=== PATIENT | male | born 1955 | race Caucasian/White ===

== ENCOUNTER 2019-11-23 07:37 | Emergency (ER) | payer OTHER ==
--- OUTSIDE RECORDS SUMMARY | 2019-11-23 07:44 | XMS REPORT | Continuity of Care Document ---
:1955 External Reference #:[id number] Author Name Luis Eduardo Diggs M.D. Address [address] [place] [address] Care Team Providers Name Role Phone Kiran Osborn M.D. - Internal Care Team Information Windows Systems Architect Medicine Andrés Martins M.D. - Care Team Information Windows Systems Architect [phone] Cardiovascular Disease Lois Lambert M.D. - Pulmonary Care Team Information Windows Systems Architect Disease Vadim Weaver M.D. - Urology Care Team Information Windows Systems Architect [phone] Problems Active Problems Provider Date Essential hypertension Onset: Psoriasis Onset: Note: LEG Migraine Onset: Pure hypercholesterolemia Onset: Nuclear senile cataract Maci Rowan O.D. Onset: 03/29/2015 Myopia Maci Rowan O.D. Onset: 03/29/2015 High Risk Open Angle Glaucoma Maci Rowan O.D. Onset: 03/29/2015 Open angle with borderline findings, high Maci Rowan O.D. Onset: 2015 risk, bilateral Combined form of senile cataract Luis Eduardo Diggs M.D. Onset: 01/13/2016 Benign prostatic hyperplasia Onset: Retinal detachment Luis Eduardo Diggs M.D. Onset: 04/06/2017 Vitreous degeneration Luis Eduardo Diggs M.D. Onset: 04/06/2017 FH: Glaucoma Luis Eduardo Diggs M.D. Onset: 04/06/2017 Ocular hypertension Luis Eduardo Diggs M.D. Onset: 10/01/2017 Chronic cough Onset: Social History Type Date Description Comments Sex Unknown ETOH Use Occasionally consumes alcohol Tobacco Use Start: Unknown Patient has never smoked Recreational Drug Use Never Used Drugs Smoking Status Reviewed: 10/02/19 Patient has never smoked Allergies, Adverse Reactions, Alerts Description No Known Drug Allergies Medications Active Medications SIG Qnty Indications Ordering Provider Date Amlodipine Besylate Shallish, Kiran 5mg M.D. Tablets Toprol XL Shallish, Kiran 50mg Tablets ER M.D. 24HR Benicar Shallish, Kiran 40mg Tablets M.D. Pravastatin Sodium Shallish, Kiran 5mg M.D. Tablets Duloxetine HCL Unknown 60mg Caps DR Part Tamsulosin HCL Unknown 0.4mg Capsules Fluticasone Propionate instill 1 spray Unknown into each nostril 50mcg/Act Suspension twice a day Immunizations Description No Information Available Vital Signs Description No Information Available Results Description No Information Available Procedures Date Code Description Status 04/03/2019 46267 Fundus Photography With Interpretation And Report Completed 04/03/2019 75683 Visual Field Exam Extended Completed 04/03/2019 75779 Determination Of Refractive State Completed 04/03/2019 05254 Est Patient Comprehensive Exam Completed Medical Devices Description No Information Available Encounters Description No Information Available Assessments Date Code Description Provider 10/02/2019 H40.053 Ocular hypertension, bilateral Luis Eduardo Diggs M.D. 10/02/2019 Z83.511 Family history of glaucoma Luis Eduardo Diggs M.D. 10/02/2019 H25.813 Combined forms of age-related cataract, Luis Eduardo Diggs M.D. bilateral 10/02/2019 H43.813 Vitreous degeneration, bilateral Luis Eduardo Diggs M.D. 04/03/2019 H40.053 Ocular hypertension, bilateral Luis Eduardo Diggs M.D. 04/03/2019 Z83.511 Family history of glaucoma Luis Eduardo Diggs M.D. 04/03/2019 H25.813 Combined forms of age-related cataract, Luis Eduardo Diggs M.D. bilateral 04/03/2019 H43.813 Vitreous degeneration, bilateral Luis Eduardo Diggs M.D. Plan of Treatment 10/02/2019 - Luis Eduardo Diggs M.D.H40.053 Ocular hypertension, bilateralComments :Smoking can increase the risk of developing or worsening any eye related disease, as well as affect your overall health. If you are a smoker, we strongly recommend that you quit.If you are not a smoker, we strongly recommend that you do not start. You have Ocular Hypertension in both eyes. This means that your eye pressure is higher than average, but you have not been diagnosed with Glaucoma.Follow up:6 Month Follow Up DFE/IOP Visual Field, 30-2 You can expect to have your eyes dilated at your nextvisit. If Dr. Diggs orders any additional testing, it may require extra time. We recommend that you bring sunglasses, as dilation drops often make you light sensitive until they wear off. We always recommend you bring someone to drive you home if you are uncomfortable driving with your eyes dilated. If you have any questions before your next visit, feel free to call our office at .F54.008 Family history of glaucomaComments:Having a family history of glaucoma is a risk factor for the possibility of you developing glaucoma.However, having a family history does not mean you show any signs of glaucoma now, or will develop glaucoma in the future. It is important that you have a dilated eye exam annually, because even thoughglaucoma is a treatable disease, it does not present itself with any signs or symptoms.H25.813 Combined forms of age-related cataract, bilateralComments:You have been diagnosed with cataracts. If you are happy with your vision as it is now, then we willsee you at your next scheduled appointment. If you feel like your vision is getting worse before your scheduled appointment, please call Marjan or Kelly at [phone].H43.813 Vitreous degeneration, bilateral Functional Status Description No Information Available Mental Status Description No Information Available Referrals Description No Information Available
--- NOTE | 2019-11-23 08:36 | ED ---
Lower Extremity - HPI Summary HPI Summary: This patient is a 64-year-old male presenting to the ED with a right ankle injury. Patient states he was cross country skiing yesterday, when he tripped and fell, falling over his right ankle. He states he was able to ambulate following, however with discomfort. He endorses pain with dorsiflexion and plantarflexion. He denies any pain to the right lower extremity. He does have slight discoloration to the area. Denies any other pain or injuries. 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 Mechanism Of Injury: Twisted Onset of Pain: Hours Onset/Duration: Hours Severity Initially: Moderate Severity Currently: Moderate Pain Intensity: 10 Pain Scale Used: 0-10 Numeric Timing: Constant Location: Is Discrete @ - right ankle fracture Associated Signs And Symptoms: Negative: Swelling, Redness, Bruising Aggravating Factor(s): Standing, Ambulation Alleviating Factor(s): Rest Able to Bear Weight: Yes - Risk Factors Gout Risk Factors: Male DVT Risk Factors: Negative Septic Arthritis Risk Factor: Negative - Allergies/Home Medications Allergies/Adverse Reactions: Allergies Allergy/AdvReac Type Severity Reaction Status Date / Time No Known Allergies Allergy Verified 11/23/19 07:40 PMH/Surg Hx/FS Hx/Imm Hx Previously Healthy: Yes Cardiovascular History: Reports: Hx Hypertension Denies: Hx Pacemaker/ICD GI History: Reports: Hx Ulcer - IN THE PAST Sensory History: Reports: Hx Contacts or Glasses - GLASSES Denies: Hx Hearing Aid Opthamlomology History: Reports: Hx Contacts or Glasses - GLASSES Neurological History: Reports: Hx Migraine - ON OCCASION- STATES TENDS TO BE WHEN DEHYDRATED Psychiatric History: Reports: Hx Depression - ON MEDICATION FOR Denies: Hx Panic Disorder - Surgical History Surgery Procedure, Year, and Place: appy, hernia, tonsils Hx Anesthesia Reactions: No - Immunization History Hx Pertussis Vaccination: No Immunizations Up to Date: Yes Infectious Disease History: No Infectious Disease History: Denies: Traveled Outside the [place] in Last 30 Days - Social History Occupation: Employed Full-time Lives: With Family Alcohol Use: None Hx Substance Use: No Substance Use Type: Reports: None Smoking Status (MU): Never Smoked Tobacco Review of Systems Negative: Fever, Chills, Fatigue, Skin Diaphoresis Negative: Palpitations, Chest Pain Negative: Shortness Of Breath, Cough Genitourinary: Negative Positive: no symptoms reported, see HPI Positive: Arthralgia - right bilateral ankle pain Skin: Negative All Other Systems Reviewed And Are Negative: Yes Physical Exam Triage Information Reviewed: Yes Vital Signs On Initial Exam: Initial Vitals Temp Pulse Resp BP Pulse Ox 99.8 F 73 19 157/96 98 11/23/19 07:37 11/23/19 07:37 11/23/19 07:37 11/23/19 07:37 11/23/19 07:37 Vital Signs Reviewed: Yes Appearance: Positive: Well-Appearing, Well-Nourished Skin: Positive: Warm, Skin Color Reflects Adequate Perfusion Head/Face: Positive: Normal Head/Face Inspection Eyes: Positive: EOMI, BHAVYA Neck: Positive: Supple, No Lymphadenopathy Respiratory/Lung Sounds: Positive: Clear to Auscultation, Breath Sounds Present Cardiovascular: Positive: RRR, Pulses are Symmetrical in both Upper and Lower Extremities Musculoskeletal: Positive: Pain @ - right ankle pain Neurological: Positive: Speech Normal Psychiatric: Positive: Normal, Affect/Mood Appropriate Procedures - Sedation Patient Received Moderate/Deep Sedation with Procedure: No Diagnostics - Vital Signs Vital Signs Temp Pulse Resp BP Pulse Ox 11/23/19 07:37 99.8 F 73 19 157/96 98 - Laboratory Lab Statement: Any lab studies that have been ordered have been reviewed, and results considered in the medical decision making process. Lower Extremity Course/Dx - Course Course Of Treatment: Patient has pain with dorsiflexion and plantar flexion of the right ankle. No pain on palpation to the right lower extremity. No pain on palpation to the right knee. Full flexion and extension without limitations range of motion. Oblique fracture of the distal fibula with probable nondisplaced fracture of the medial malleolus. Pulses intact bilaterally. Posterior splint with sugar tong placed using plaster. Pt tolerated well. NV intact. Pt will follow up with ortho. - Diagnoses Differential Diagnosis/HQI/PQRI: Positive: Fracture (Closed), Fracture (Open), Sprain, Strain Provider Diagnoses: Fracture of distal end of fibula Discharge ED - Sign-Out/Discharge Documenting (check all that apply): Patient Departure - Discharge Plan Condition: Stable Disposition: HOME Patient Education Materials: Ankle Fracture (ED) Referrals: Larisa Cottrell MD [Medical Doctor] - Lior Ortega MD [Medical Doctor] - Kiran Osborn MD [Primary Care Provider] - Additional Instructions: Elevate the extremity when possible Do not bear weight Tomorrow morning, call the ortho office for an appt Crutches for ambulation - Billing Disposition and Condition Condition: STABLE Disposition: Home
[2019-11-23 08:41] VITALS: BP 148/84
== END 2019-11-23 08:40 | disposition home or self-care (01) ==
LOC: ED 07:37
DX: S82.831A Other fracture of upper and lower end of right fibula, initial encounter for closed fracture (principal); W01.0XXA Fall on same level from slipping, tripping and stumbling without subsequent striking against object, initial encounter; Y93.24 Activity, cross country skiing; Y92.9 Unspecified place or not applicable; I10 Essential (primary) hypertension; F32.9 Major depressive disorder, single episode, unspecified
CPT/HCPCS: 99282

== ENCOUNTER 2019-12-04 11:30 | Day surgery (SDC) | payer OTHER ==
[~2019-12-04 11:30] MED LIST: Buffered Lidocaine 1% SYRIN* 1 ML/SYRINGE INTRADERM ONE; Dexamethasone IV* 4 MG/ML 1 ML (4 MG) IV SLOW PU ONE; Famotidine IV* 10 MG/ML 2 ML (20 mg) IV ONE; Lactated Ringers 1000 ML Bag* 1,000 ML IV SCH
[2019-12-04] MEDS ORDERED: ceFAZolin 2 GM in NS PREMIX(*) 2 GM/100 ML BAG IVPB ONE (12:22)
[2019-12-04] MEDS ORDERED: Dexamethasone IV* 4 MG/ML 1 ML (4 MG) ONE (12:22)
[2019-12-04] MEDS ORDERED: Famotidine IV* 10 MG/ML 2 ML (20 mg) ONE (12:22)
[2019-12-04] MEDS ORDERED: fentaNYL* 50 MCG/ML 2 ML VIAL (100 MCG VIAL) ONE ×2 (13:24→15:18)
[2019-12-04] MEDS ORDERED: Midazolam* 1 MG/ML 5 ML VIAL (5 MG) ONE (13:25)
[2019-12-04] MEDS ORDERED: Ondansetron INJ* 2 MG/ML VIAL ONE (13:25)
[2019-12-04] MEDS ORDERED: Propofol* 10 MG/ML 20 ML BTL ONE ×3 (13:25→16:30)
[2019-12-04] MEDS ORDERED: Lidocaine 1% w EPI 1:100,000* MDV 20 ML VIAL ONE ×2 (13:55→14:05)
[2019-12-04] MEDS ORDERED: Methylene Blue 0.5 %* 50 MG/10 ML AMP IV ONE (13:55)
[2019-12-04] MEDS ORDERED: Bupivacaine 0.25% SDV* 30 ML ONE (13:56)
[2019-12-04] MEDS ORDERED: Mineral Oil Sterile, TOPICAL* 25 ML BTL ONE (13:56)
[2019-12-04] MEDS ORDERED: Labetalol IV* 5 MG/ML 20 ML VIAL ONE (16:07)
[2019-12-04] MEDS ORDERED: Acetaminophen TAB* 325 MG ONE (17:33)
[2019-12-04 17:56] VITALS: BP 127/84
== END 2019-12-04 18:08 | disposition home or self-care (01) ==
LOC: OR 11:30
PROVIDERS: ATTEND Plastic Surgery
DX: C44.42 Squamous cell carcinoma of skin of scalp and neck (principal); I10 Essential (primary) hypertension; J45.909 Unspecified asthma, uncomplicated; E78.00 Pure hypercholesterolemia, unspecified; Z85.828 Personal history of other malignant neoplasm of skin
CPT/HCPCS: 88305; 88329; A9270-GY; J0690; J1100; J2250; J2405; J2704; J3010; J3490

== ENCOUNTER 2022-09-12 10:29 | Inpatient (IN) ==
[2022-09-12] MEDS ORDERED: NS 0.9% 1000 ml BAG 1,000 ML IV ONE ×2 (13:34→14:41)
[2022-09-12 13:43] LABS: ABS Eosinophils 0.1 10^3/ul (0-0.6); ABS Monocytes 0.8 10^3/ul (0-0.8); ABS Neutrophils 11.4 10^3/ul (1.5-7.7); Eosinophil % 0.4 %; Hematocrit 50 % (42-52); Hemoglobin 17.1 g/dL (14.0-18.0); Lymphocyte % 7.6 %; Mean Corpuscular HGB Conc 34 g/dL (31-36); Mean Corpuscular Hemoglobin 32 pg (27-31); Mean Corpuscular Volume 94 fL (80-94); Mean Platelet Volume 6.8 fL (7.4-10.4); Platelet Count 245 10^3/uL (150-450); Red Blood Count 5.27 10^6 /uL (4.18-5.48); Red Cell Distribution Width 12 % (10-15); White Blood Count 13.3 10^3/uL (3.5-10.8)
[2022-09-12] MEDS ORDERED: Ondansetron 4 mg VIAL 2 MG/ML 2 ml VIAL IV ONE (14:14)
[2022-09-12 14:28] LABS: Albumin 4.4 g/dL (3.2-5.2); Albumin/Globulin Ratio 1.8 (1-3); C Reactive Protein 20.54 mg/L (<8.01); Calcium 9.7 mg/dL (8.6-10.3); Globulin 2.5 g/dL (2-4); Magnesium 1.9 mg/dL (1.9-2.7); Potassium 4.2 mmol/L (3.5-5.0); Total Bilirubin 1.3 mg/dL (0.2-1.0); Total Protein 6.9 g/dL (6.4-8.9); eGFR CKD-EPI 97.7 (>60)
[2022-09-12] MEDS ORDERED: Iohexol 350 (CONTRAST) 500 ML MDV IV ONE (14:54)
[2022-09-12 15:49] LABS: High Sensitivity Troponin 1 Hr 20 pg/mL (<20)
[2022-09-12 16:10] LABS: Urine Appearance Clear; Urine Bilirubin Negative (Negative); Urine Blood 2+ (Negative); Urine Color Yellow; Urine Glucose Negative (Negative); Urine Ketones Trace (Negative); Urine Nitrite Negative (Negative); Urine Protein Negative (Negative); Urine Specific Gravity 1.024 (1.002-1.030); Urine Urobilinogen Negative (Negative)
[2022-09-12 16:14] LABS: Urine Bacteria Absent (Absent); Urine Red Blood Cell 2+(6-10/hpf) (Absent); Urine White Blood Cell Trace(0-5/hpf) (Absent)
[2022-09-12 17:50] LABS: Osmolality Serum 258 mOsm/kg (275-295)
[2022-09-12 17:51] LABS: TSH Ultra Thyroid Stim Horm 1.22 mcIU/mL (0.34-5.60)
[2022-09-12] MEDS: Enoxaparin 40 MG/0.4 ML SYR SUBCUT SCH (18:33)
[2022-09-12 19:35] LABS: Calcium 8.9 mg/dL (8.6-10.3); Potassium 3.9 mmol/L (3.5-5.0); eGFR CKD-EPI 99.7 (>60)
[2022-09-12] MEDS ORDERED: Al Hydrox/Mg Hydrox/Simet LIQ 30 ML UDC PO ONE (19:40)
[2022-09-12 19:48] LABS: Urine Osmo 431 mOsm/kg (150-1150)
[2022-09-12] MEDS: Albuterol HFA INHALER 8 gm MDI INH PRN (20:25)
[2022-09-12] MEDS: Mometasone/Formoter 200/5 MDI INH SCH (20:35)
[2022-09-13] MEDS: Al Hydrox/Mg Hydrox/Simet LIQ 30 ML UDC PO PRN (00:30)
[2022-09-13 00:58] LABS: Calcium 9.1 mg/dL (8.6-10.3); Potassium 3.9 mmol/L (3.5-5.0); eGFR CKD-EPI 99.3 (>60)
[2022-09-13 06:37] LABS: Hematocrit 47 % (42-52); Hemoglobin 16.5 g/dL (14.0-18.0); Mean Corpuscular HGB Conc 35 g/dL (31-36); Mean Corpuscular Hemoglobin 32 pg (27-31); Mean Corpuscular Volume 93 fL (80-94); Mean Platelet Volume 6.8 fL (7.4-10.4); Platelet Count 225 10^3/uL (150-450); Red Blood Count 5.09 10^6 /uL (4.18-5.48); Red Cell Distribution Width 13 % (10-15); White Blood Count 10.9 10^3/uL (3.5-10.8)
[2022-09-13 07:31] LABS: Potassium 3.7 mmol/L (3.5-5.0); eGFR CKD-EPI 99.3 (>60)
[2022-09-13] MEDS: Mometasone/Formoter 200/5 MDI INH SCH ×2 (07:43→19:15)
[2022-09-13] MEDS: Albuterol HFA INHALER 8 gm MDI INH PRN ×3 (07:52→19:17)
[2022-09-13] MEDS: Pravastatin 20 mg TAB (NF) PO SCH (08:39)
[2022-09-13] MEDS ORDERED: DULoxetine DR 60 mg CAP PO SCH (09:00)
[2022-09-13] MEDS: Enoxaparin 40 MG/0.4 ML SYR SUBCUT SCH (20:37)
[2022-09-14 07:06] LABS: ABS Eosinophils 0.1 10^3/ul (0-0.6); ABS Lymphocytes 1.4 10^3/ul (1.0-4.8); ABS Monocytes 1.3 10^3/ul (0-0.8); ABS Neutrophils 8.1 10^3/ul (1.5-7.7); Eosinophil % 0.5 %; Hematocrit 47 % (42-52); Hemoglobin 16.4 g/dL (14.0-18.0); Lymphocyte % 13.1 %; Mean Corpuscular HGB Conc 35 g/dL (31-36); Mean Corpuscular Hemoglobin 33 pg (27-31); Mean Corpuscular Volume 93 fL (80-94); Mean Platelet Volume 7.2 fL (7.4-10.4); Nucleated Red Blood Cells % 0.1; Platelet Count 244 10^3/uL (150-450); Red Blood Count 5.04 10^6 /uL (4.18-5.48); Red Cell Distribution Width 12 % (10-15); White Blood Count 10.8 10^3/uL (3.5-10.8)
[2022-09-14] MEDS: Mometasone/Formoter 200/5 MDI INH SCH ×2 (07:14→19:22)
[2022-09-14 07:29] LABS: Calcium 8.8 mg/dL (8.6-10.3); Magnesium 2.2 mg/dL (1.9-2.7); Potassium 3.6 mmol/L (3.5-5.0); eGFR CKD-EPI 98.1 (>60)
[2022-09-14] MEDS: Pravastatin 20 mg TAB (NF) PO SCH (08:23)
[2022-09-14] MEDS: Albuterol HFA INHALER 8 gm MDI INH PRN (12:09)
[2022-09-14] MEDS ORDERED: Senna TAB 8.6 mg TAB PO ONE (12:26)
[2022-09-14] MEDS: Magnesium Hydroxide LIQ 30 ML UDC PO SCH ×2 (13:51→19:46)
[2022-09-14] MEDS: Al Hydrox/Mg Hydrox/Simet LIQ 30 ML UDC PO PRN (16:39)
[2022-09-14] MEDS: Enoxaparin 40 MG/0.4 ML SYR SUBCUT SCH (20:30)
[2022-09-15 06:17] LABS: ABS Eosinophils 0.1 10^3/ul (0-0.6); ABS Lymphocytes 1.9 10^3/ul (1.0-4.8); ABS Monocytes 1.2 10^3/ul (0-0.8); ABS Neutrophils 6.5 10^3/ul (1.5-7.7); Eosinophil % 0.9 %; Hematocrit 44 % (42-52); Hemoglobin 15.5 g/dL (14.0-18.0); Lymphocyte % 19.8 %; Mean Corpuscular HGB Conc 35 g/dL (31-36); Mean Corpuscular Hemoglobin 33 pg (27-31); Mean Corpuscular Volume 94 fL (80-94); Mean Platelet Volume 6.9 fL (7.4-10.4); Platelet Count 235 10^3/uL (150-450); Red Blood Count 4.74 10^6 /uL (4.18-5.48); Red Cell Distribution Width 13 % (10-15); White Blood Count 9.8 10^3/uL (3.5-10.8)
[2022-09-15 06:29] LABS: Calcium 8.6 mg/dL (8.6-10.3); Magnesium 2.6 mg/dL (1.9-2.7); Potassium 3.5 mmol/L (3.5-5.0)
[2022-09-15] MEDS: Mometasone/Formoter 200/5 MDI INH SCH (07:15)
[2022-09-15] MEDS ORDERED: Magnesium Hydroxide LIQ 30 ML UDC PO PRN (08:00)
[2022-09-15] MEDS: Pravastatin 20 mg TAB (NF) PO SCH (08:46)
[2022-09-15 11:39] VITALS: BP 134/87
== END 2022-09-15 12:22 | disposition home or self-care (01) | DRG 644 ==
LOC: ED 10:29 → EDHOLD 10:29 → SUATTDRO 16:37 → MED 22:52
PROVIDERS: ADMIT Internal Medicine; ATTEND Internal Medicine